=== PATIENT | male | born 2000 | race Caucasian/White ===

== ENCOUNTER 2022-02-05 11:39 | Day surgery (SDC) | payer MEDICAID ==
[2022-02-05] MEDS: Lidocaine 1% with EPINEPHrine 1:100,000 50 ML MDV ONE ×2 (11:24→14:40)
[2022-02-05] MEDS: Bupivacaine 0.5% 50 ML MDV ONE ×2 (11:24→14:40)
[~2022-02-05 11:39] MED LIST: Midazolam 1 MG/ML 2 ML SDV ONE; Propofol 200 MG/20 ML SDV ONE; fentaNYL 100 MCG/2 ML SDV ONE
[2022-02-05] MEDS ORDERED: Sodium Chloride 0.9% 1,000 ML IV SCH (13:00)
[2022-02-05] MEDS ORDERED: Propofol 200 MG/20 ML SDV ONE ×3 (14:28→15:05)
[2022-02-05] MEDS ORDERED: Midazolam 1 MG/ML 2 ML SDV ONE (14:45)
[2022-02-05] MEDS ORDERED: fentaNYL 100 MCG/2 ML SDV ONE (14:46)
[2022-02-05] MEDS ORDERED: Acetaminophen/HYDROcodone 325-5 MG Tab PO ONE (16:00)
== END 2022-02-05 16:38 | disposition home or self-care (01) ==
LOC: JP.SDS 11:39
PROVIDERS: ATTEND Surgery
DX: D17.1 Benign lipomatous neoplasm of skin and subcutaneous tissue of trunk (principal); D17.23 Benign lipomatous neoplasm of skin and subcutaneous tissue of right leg; D17.22 Benign lipomatous neoplasm of skin and subcutaneous tissue of left arm
CPT/HCPCS: 88304; A9270-GY; J2250; J2704; J3010; J3490; J7030